=== PATIENT | male | born 1955 | race Caucasian/White ===

== ENCOUNTER 2021-01-22 17:34 | Inpatient (IN) | payer OTHER, MEDICARE ==
[~2021-01-22] VITALS: Ht 175.3 cm; Wt 104.3 kg
[2021-01-22 19:20] VITALS: BP 153/89
[2021-01-22 20:00] VITALS: BP 153/89
[2021-01-22] MEDS ORDERED: MELOXICAM7.5 MG PO (22:36)
[2021-01-22] MEDS ORDERED: METFORMIN HCL500 MG PO (22:36)
[2021-01-22] MEDS ORDERED: FUROSEMIDE40 MG PO (22:36)
[2021-01-22] MEDS ORDERED: LISINOPRIL10 MG PO (22:36)
[2021-01-22] MEDS ORDERED: SIMVASTATIN20 MG PO (22:36)
[2021-01-22] MEDS ORDERED: ALLOPURINOL100 MG PO (22:36)
[2021-01-22] MEDS ORDERED: METOPROLOL TART50 MG PO (22:36)
[2021-01-22] MEDS ORDERED: GLIPIZIDE5 MG PO (22:36)
[2021-01-22] MEDS ORDERED: CELEBREX100 MG PO (22:36)
[2021-01-22] MEDS ORDERED: MELOXICAM 7.5 MG TAB PO PRN (22:45)
[2021-01-22] MEDS ORDERED: SODIUM CHLORIDE 0.9% 250ML 250 ML ONE (23:01)
[2021-01-22] MEDS: CEFTRIAXONE 2 GM in SODIUM CHLORIDE 0.9% 100 ML IV SCH (23:10)
[2021-01-22] MEDS: ENOXAPARIN SOD INJ 40 MG/0.4 ML SYR SC SCH (23:10)
[2021-01-22 23:15] VITALS: BP 153/89
[2021-01-22] MEDS: ACETAMINOPHEN 325 MG TAB PO PRN (23:53)
[2021-01-22] MEDS: SIMVASTATIN 20 MG TAB PO SCH (23:53)
[2021-01-23] VITALS (16 sets, daily range): BP systolic 119–146; BP diastolic 66–95
[2021-01-23] MEDS: BENZONATATE 100 MG CAP PO SCH ×4 (00:55→21:09)
[2021-01-23] MEDS: ALBUTEROL SULFATE HFA 8GM INHALATION AEROSOL INH SCH ×4 (01:35→19:12)
[2021-01-23] MEDS: LISINOPRIL 10 MG TAB PO SCH ×2 (09:04→16:27)
[2021-01-23] MEDS: FUROSEMIDE 20 MG TAB PO SCH ×2 (09:04→16:27)
[2021-01-23] MEDS: ASCORBIC ACID 500 MG TAB PO SCH ×2 (09:04→16:27)
[2021-01-23] MEDS: ZINC SULFATE 50 MG CAP PO SCH (09:04)
[2021-01-23] MEDS: METFORMIN HCL 500 MG TAB PO SCH ×2 (09:04→16:27)
[2021-01-23] MEDS: DEXAMETHASONE SOD PHOS 10 MG/1 ML VIAL IV SCH (09:04)
[2021-01-23] MEDS: CELECOXIB 100 MG CAP PO SCH (09:04)
[2021-01-23] MEDS: GLIPIZIDE 5 MG TAB PO SCH ×2 (09:04→17:16)
[2021-01-23] MEDS: METOPROLOL TARTRATE 50 MG TAB PO SCH ×2 (09:05→17:16)
[2021-01-23] MEDS: ALLOPURINOL 100 MG TAB PO SCH ×2 (09:05→16:27)
[2021-01-23] MEDS: ENOXAPARIN SOD INJ 40 MG/0.4 ML SYR SC SCH ×2 (09:05→21:09)
[2021-01-23 09:08] LABS: BASOPHILS % 0.1 % (0.0-1.0); HEMATOCRIT 44.3 % (38.2-49.6); HEMOGLOBIN 14.3 g/dL (14.0-18.0); LYMPHOCYTES # (AUTO) 9.2 (1.0-3.2); LYMPHOCYTES % 41.8 % (18.0-39.1); MEAN CORPUSCULAR HEMOGLOBIN 27.4 pg (28-32); MEAN CORPUSCULAR HGB CONC 32.3 g/dL (31-35); MEAN CORPUSCULAR VOLUME 84.9 fL (81-99); MONOCYTES # (AUTO) 0.5 (0.2-0.8); MONOCYTES % 2.4 % (4.4-11.3); NEUTROPHILS # (AUTO) 12.1 (2.1-6.9); NEUTROPHILS % 55.2 % (38.7-80.0); PLATELET COUNT 163 x10e3/uL (140-360); RED BLOOD COUNT 5.22 x10e6/uL (4.3-5.7); RED CELL DISTRIBUTION WIDTH 14.4 % (11.7-14.4)
[2021-01-23 09:33] LABS: ANION GAP 14.2 mmol/L (8-16); CREATININE, SERUM 2.08 mg/dL (0.72-1.25); POTASSIUM 4.2 mmol/L (3.5-5.1)
[2021-01-23] MEDS: GUAIFENESIN 200 MG/10 ML UDC PO PRN ×2 (09:55→10:33)
[2021-01-23] MEDS ORDERED: REMDESIVIR 200MG 200 MG in SODIUM CHLORIDE 0.9% 100 ML IV ONE (10:00)
[2021-01-23] MEDS: ACETAMINOPHEN 325 MG TAB PO PRN (10:37)
[2021-01-23] MEDS: SIMVASTATIN 20 MG TAB PO SCH (21:09)
[2021-01-23] MEDS ORDERED: SODIUM CHLORIDE 0.9% 100 ML ONE (21:17)
[2021-01-23] MEDS: CEFTRIAXONE 2 GM in SODIUM CHLORIDE 0.9% 100 ML IV SCH (23:31)
[2021-01-24] VITALS (10 sets, daily range): BP systolic 140–172; BP diastolic 79–91
[2021-01-24] MEDS: ALBUTEROL SULFATE HFA 8GM INHALATION AEROSOL INH SCH ×4 (01:09→19:06)
[2021-01-24] MEDS: CELECOXIB 100 MG CAP PO SCH (07:46)
[2021-01-24] MEDS: DEXAMETHASONE SOD PHOS 10 MG/1 ML VIAL IV SCH (07:46)
[2021-01-24] MEDS: METFORMIN HCL 500 MG TAB PO SCH ×2 (07:46→17:51)
[2021-01-24] MEDS: FUROSEMIDE 20 MG TAB PO SCH ×2 (07:47→17:52)
[2021-01-24] MEDS: GLIPIZIDE 5 MG TAB PO SCH ×2 (07:47→17:51)
[2021-01-24] MEDS: METOPROLOL TARTRATE 50 MG TAB PO SCH ×2 (07:48→18:00)
[2021-01-24] MEDS: BENZONATATE 100 MG CAP PO SCH ×3 (07:49→21:06)
[2021-01-24] MEDS: ASCORBIC ACID 500 MG TAB PO SCH ×2 (07:49→18:01)
[2021-01-24] MEDS: ZINC SULFATE 50 MG CAP PO SCH (07:49)
[2021-01-24] MEDS: LISINOPRIL 10 MG TAB PO SCH ×2 (07:49→18:01)
[2021-01-24] MEDS: ALLOPURINOL 100 MG TAB PO SCH ×2 (07:50→18:01)
[2021-01-24] MEDS: ENOXAPARIN SOD INJ 40 MG/0.4 ML SYR SC SCH ×2 (08:36→21:06)
[2021-01-24] MEDS: REMDESIVIR 100MG 100 MG in SODIUM CHLORIDE 0.9% 100 ML IV SCH (14:30)
[2021-01-24] MEDS: SIMVASTATIN 20 MG TAB PO SCH (21:06)
[2021-01-24] MEDS: CEFTRIAXONE 2 GM in SODIUM CHLORIDE 0.9% 100 ML IV SCH (21:06)
[2021-01-24] MEDS ORDERED: SODIUM CHLORIDE 0.9% 250ML 250 ML ONE (21:24)
[2021-01-24] MEDS: ACETAMINOPHEN 325 MG TAB PO PRN (22:20)
[2021-01-25] VITALS (7 sets, daily range): BP systolic 147–166; BP diastolic 79–97
[2021-01-25] MEDS: ALBUTEROL SULFATE HFA 8GM INHALATION AEROSOL INH SCH ×3 (01:09→14:13)
[2021-01-25 05:28] LABS: BASOPHILS # (AUTO) 0.1 (0.0-0.1); BASOPHILS % 0.2 % (0.0-1.0); EOSINOPHILS % 0.1 % (0.0-6.0); HEMATOCRIT 46.3 % (38.2-49.6); HEMOGLOBIN 14.9 g/dL (14.0-18.0); LYMPHOCYTES # (AUTO) 12.9 (1.0-3.2); LYMPHOCYTES % 47.6 % (18.0-39.1); MEAN CORPUSCULAR HEMOGLOBIN 27.2 pg (28-32); MEAN CORPUSCULAR HGB CONC 32.2 g/dL (31-35); MEAN CORPUSCULAR VOLUME 84.6 fL (81-99); MONOCYTES # (AUTO) 0.7 (0.2-0.8); MONOCYTES % 2.6 % (4.4-11.3); NEUTROPHILS # (AUTO) 13.2 (2.1-6.9); NEUTROPHILS % 48.8 % (38.7-80.0); PLATELET COUNT 242 x10e3/uL (140-360); RED BLOOD COUNT 5.47 x10e6/uL (4.3-5.7); RED CELL DISTRIBUTION WIDTH 14.6 % (11.7-14.4)
[2021-01-25 05:42] LABS: ALBUMIN 3.2 g/dL (3.5-5.0); ALBUMIN/GLOBULIN RATIO 0.9 (0.8-2.0); ANION GAP 18.7 mmol/L (8-16); CALCIUM 8.7 mg/dL (8.4-10.2); CREATININE, SERUM 1.63 mg/dL (0.72-1.25); POTASSIUM 4.7 mmol/L (3.5-5.1)
[2021-01-25] MEDS: CELECOXIB 100 MG CAP PO SCH (08:16)
[2021-01-25] MEDS: METFORMIN HCL 500 MG TAB PO SCH (08:16)
[2021-01-25] MEDS: DEXAMETHASONE SOD PHOS 10 MG/1 ML VIAL IV SCH (08:16)
[2021-01-25] MEDS: GLIPIZIDE 5 MG TAB PO SCH ×2 (08:17→16:20)
[2021-01-25] MEDS: FUROSEMIDE 20 MG TAB PO SCH ×2 (08:17→16:20)
[2021-01-25] MEDS: ZINC SULFATE 50 MG CAP PO SCH (08:18)
[2021-01-25] MEDS: LISINOPRIL 10 MG TAB PO SCH ×2 (08:18→16:21)
[2021-01-25] MEDS: METOPROLOL TARTRATE 50 MG TAB PO SCH ×2 (08:18→16:21)
[2021-01-25] MEDS: ASCORBIC ACID 500 MG TAB PO SCH ×2 (08:18→16:21)
[2021-01-25] MEDS: BENZONATATE 100 MG CAP PO SCH ×3 (08:18→21:24)
[2021-01-25] MEDS: ENOXAPARIN SOD INJ 40 MG/0.4 ML SYR SC SCH (08:18)
[2021-01-25] MEDS: ALLOPURINOL 100 MG TAB PO SCH ×2 (08:18→16:21)
[2021-01-25 10:45] LABS: BAND NEUTROPHILS % (MANUAL) 1 %; LYMPHOCYTES % (MANUAL) 28 % (19-48); MONOCYTES % (MANUAL) 2 % (3.4-9.0); NEUTROPHILS % (MANUAL) 69 % (40-74); PLATELET ESTIMATE ADEQUATE; PLATELET MORPHOLOGY COMMENT NORMAL; RBC MORPHOLOGY COMMENT NORMAL
[2021-01-25] MEDS ORDERED: PIPERACILLIN/TAZOBACTAM 3.375 GM in SODIUM CHLORIDE 0.9% 50ML 50 ML IV SCH (14:00)
[2021-01-25] MEDS: REMDESIVIR 100MG 100 MG in SODIUM CHLORIDE 0.9% 100 ML IV SCH (14:13)
[2021-01-25] MEDS: SODIUM BICARBONATE 650 MG TAB PO SCH (16:21)
[2021-01-25 17:25] LABS: CREATININE,URINE RANDOM 74.76 mg/dL (63-166); TOTAL PROTEIN, URINE 165.6 mg/dL (1-14)
[2021-01-25] MEDS: SIMVASTATIN 20 MG TAB PO SCH (21:24)
[2021-01-26] VITALS (10 sets, daily range): BP systolic 150–176; BP diastolic 80–98
[2021-01-26] MEDS: ALBUTEROL SULFATE HFA 8GM INHALATION AEROSOL INH SCH ×4 (01:00→13:05)
[2021-01-26 05:47] LABS: BASOPHILS # (AUTO) 0.1 (0.0-0.1); BASOPHILS % 0.3 % (0.0-1.0); HEMATOCRIT 46.8 % (38.2-49.6); HEMOGLOBIN 15.1 g/dL (14.0-18.0); LYMPHOCYTES # (AUTO) 11.9 (1.0-3.2); LYMPHOCYTES % 51.6 % (18.0-39.1); MEAN CORPUSCULAR HEMOGLOBIN 27.4 pg (28-32); MEAN CORPUSCULAR HGB CONC 32.3 g/dL (31-35); MEAN CORPUSCULAR VOLUME 84.9 fL (81-99); MONOCYTES # (AUTO) 0.9 (0.2-0.8); NEUTROPHILS # (AUTO) 9.9 (2.1-6.9); NEUTROPHILS % 42.9 % (38.7-80.0); PLATELET COUNT 230 x10e3/uL (140-360); RED BLOOD COUNT 5.51 x10e6/uL (4.3-5.7); RED CELL DISTRIBUTION WIDTH 14.4 % (11.7-14.4)
[2021-01-26 06:08] LABS: ANION GAP 14.1 mmol/L (8-16); CALCIUM 8.4 mg/dL (8.4-10.2); CREATININE, SERUM 1.53 mg/dL (0.72-1.25); POTASSIUM 5.1 mmol/L (3.5-5.1)
[2021-01-26] MEDS: FUROSEMIDE 20 MG TAB PO SCH ×2 (07:53→17:26)
[2021-01-26] MEDS: CELECOXIB 100 MG CAP PO SCH (07:53)
[2021-01-26] MEDS: DEXAMETHASONE SOD PHOS 10 MG/1 ML VIAL IV SCH (07:53)
[2021-01-26] MEDS: GLIPIZIDE 5 MG TAB PO SCH ×2 (07:53→17:26)
[2021-01-26] MEDS: ZINC SULFATE 50 MG CAP PO SCH (07:54)
[2021-01-26] MEDS: ALLOPURINOL 100 MG TAB PO SCH ×2 (07:54→17:26)
[2021-01-26] MEDS: SODIUM BICARBONATE 650 MG TAB PO SCH (07:54)
[2021-01-26] MEDS: METOPROLOL TARTRATE 50 MG TAB PO SCH ×2 (07:54→17:26)
[2021-01-26] MEDS: BENZONATATE 100 MG CAP PO SCH ×3 (07:54→21:22)
[2021-01-26] MEDS: ASCORBIC ACID 500 MG TAB PO SCH ×2 (07:54→17:26)
[2021-01-26] MEDS: LISINOPRIL 10 MG TAB PO SCH (07:54)
[2021-01-26] MEDS: ENOXAPARIN SOD INJ 40 MG/0.4 ML SYR SC SCH (07:54)
[2021-01-26 10:50] LABS: LYMPHOCYTES % (MANUAL) 63 % (19-48); MONOCYTES % (MANUAL) 2 % (3.4-9.0); NEUTROPHILS % (MANUAL) 35 % (40-74); PLATELET ESTIMATE ADEQUATE; PLATELET MORPHOLOGY COMMENT NORMAL; RBC MORPHOLOGY COMMENT NORMAL
[2021-01-26] MEDS: AMLODIPINE BESYLATE 5 MG TAB PO SCH (11:21)
[2021-01-26] MEDS ORDERED: SOD POLYSTYRENE SULFONATE SUSP 15 GM/60 ML BTL PO ONE (11:30)
[2021-01-26] MEDS: REMDESIVIR 100MG 100 MG in SODIUM CHLORIDE 0.9% 100 ML IV SCH (13:52)
[2021-01-26] MEDS: SIMVASTATIN 20 MG TAB PO SCH (21:22)
[2021-01-27] VITALS: BP 172/93
[2021-01-27 01:25] VITALS: BP 172/93
[2021-01-27 05:27] VITALS: BP 161/91
[2021-01-27 07:02] LABS: ANION GAP 13.4 mmol/L (8-16); CALCIUM 8.5 mg/dL (8.4-10.2); CREATININE, SERUM 1.29 mg/dL (0.72-1.25); POTASSIUM 4.4 mmol/L (3.5-5.1)
[2021-01-27 08:38] VITALS: BP 170/91
[2021-01-27] MEDS: ENOXAPARIN SOD INJ 40 MG/0.4 ML SYR SC SCH (08:44)
[2021-01-27] MEDS: FUROSEMIDE 20 MG TAB PO SCH (08:44)
[2021-01-27] MEDS: DEXAMETHASONE SOD PHOS 10 MG/1 ML VIAL IV SCH (08:44)
[2021-01-27] MEDS: ZINC SULFATE 50 MG CAP PO SCH (08:44)
[2021-01-27] MEDS: ALBUTEROL SULFATE HFA 8GM INHALATION AEROSOL INH SCH (08:44)
[2021-01-27] MEDS: BENZONATATE 100 MG CAP PO SCH ×2 (08:44→14:54)
[2021-01-27] MEDS: ASCORBIC ACID 500 MG TAB PO SCH ×2 (08:44→16:11)
[2021-01-27] MEDS: ALLOPURINOL 100 MG TAB PO SCH ×2 (08:44→16:11)
[2021-01-27] MEDS: AMLODIPINE BESYLATE 5 MG TAB PO SCH (08:44)
[2021-01-27] MEDS: GLIPIZIDE 5 MG TAB PO SCH ×2 (08:44→16:10)
[2021-01-27] MEDS: METOPROLOL TARTRATE 50 MG TAB PO SCH ×2 (08:45→16:10)
[2021-01-27 09:54] VITALS: BP 170/91
[2021-01-27 12:24] VITALS: BP 149/88
[2021-01-27] MEDS: REMDESIVIR 100MG 100 MG in SODIUM CHLORIDE 0.9% 100 ML IV SCH (14:54)
[2021-01-27] MEDS ORDERED: FUROSEMIDE 40 MG TAB PO SCH (17:00)
[2021-01-27] MEDS ORDERED: AMLODIPINE BESYLATE 5 MG TAB PO SCH (17:00)
[2021-01-28] MEDS ORDERED: LISINOPRIL 20 MG TAB PO SCH (09:00)
== END 2021-01-27 16:16 | disposition home or self-care (01) | DRG 871 ==
LOC: MED/SURG3 17:34 → ICU 01-23 14:19 → IMCU 01-25 04:13 → MED/SURG3 01-25 17:07
PROVIDERS: ADMIT Internal Medicine; ATTEND Internal Medicine
PROC: 8E0ZXY6 Isolation (ICD-10-PCS; 2021-01-22)
PROC: 02HV33Z Insertion of Infusion Device into Superior Vena Cava, Percutaneous Approach (ICD-10-PCS; principal; 2021-01-23)
PROC: XW043E5 Introduction of Remdesivir Anti-infective into Central Vein, Percutaneous Approach, New Technology Group 5 (ICD-10-PCS; 2021-01-24)
DX: A41.89 Other specified sepsis (principal); U07.1 COVID-19; J12.82 Pneumonia due to coronavirus disease 2019; J96.01 Acute respiratory failure with hypoxia; N17.9 Acute kidney failure, unspecified; E87.2 Acidosis; E87.1 Hypo-osmolality and hyponatremia; N39.0 Urinary tract infection, site not specified; R65.20 Severe sepsis without septic shock; E87.5 Hyperkalemia; E86.1 Hypovolemia; E11.22 Type 2 diabetes mellitus with diabetic chronic kidney disease; I12.9 Hypertensive chronic kidney disease with stage 1 through stage 4 chronic kidney disease, or unspecified chronic kidney disease; N18.9 Chronic kidney disease, unspecified; Z79.899 Other long term (current) drug therapy
CPT/HCPCS: 36415; 36569; 71045; 76770; 78580; 80048; 80053; 82570; 82948; 83605; 84156; 84300; 85025; 86140; 94664; 96360; A9540; J0456; J0696; J1100; J1650; J7050